=== PATIENT | female | born 1990 | race Caucasian/White ===

== ENCOUNTER 2017-06-13 13:59 | Emergency (ER) | payer OTHER, MEDICAID ==
[~2017-06-13] VITALS: Ht 165.1 cm; Wt 62.6 kg
[~2017-06-13 13:59] MED LIST: AMOXICILLIN 50500 MG PO; AUGMENTIN 875875 MG PO; CEPHALEXIN 250250 M1 PO; CIPRO250 MG PO; CITRATE OF MAG296 ML PO; CLEOCIN HCL150 MG PO; CLEOCIN HCL300 MG PO; COLACE 100 MG100 MG PO; DOLOPHINE HCL5 MG; DOLOPHINE HCL5 MG PO; HYDROCODONE-APA1 TA1 PO; IBUPROFEN 600600 M1 PO; IBUPROFEN 800800 M1 PO; IBUPROFEN 800800 MG PO; LIDOCAINE VISC100 M1 SWISH&SPIT; MACROBID 100 M100 M1 PO; NAPROSYN500 MG PO; NOHOMEMEDICATIONS; NORCO 5-325 TA1 EACH PO; PENICILLIN V P500 MG PO; PENICILLIN VK250 MG PO; PENICILLIN VK500 M1 PO; PENICILLIN VK500 MG PO; PERIDEX 0.12%473 M1 SSP; TRAMADOL 50 MG50 MG PO; TRINATE TABLET1 TAB PO; ULTRAM 50MG TAB50 MG PO; VEETIDS 250MG250 M1 PO
[2017-06-13] MEDS ORDERED: IRON325 PO (14:12)
[2017-06-13] MEDS ORDERED: COLACE100 MG PO (14:12)
[2017-06-13] MEDS ORDERED: PRENATE ELITE1 EACH PO (14:13)
[2017-06-13 14:30] VITALS: BP 122/85
== END 2017-06-13 14:32 | disposition left against medical advice (07) ==
LOC: M.ERS 13:59
DX: Z53.21 Procedure and treatment not carried out due to patient leaving prior to being seen by health care provider (principal)

== ENCOUNTER 2017-07-26 15:36 | Emergency (ER) | payer OTHER, MEDICAID ==
[~2017-07-26] VITALS: Ht 162.6 cm; Wt 54.4 kg
[~2017-07-26 15:36] MED LIST changes: +COLACE100 MG PO; +IRON325 PO; +PRENATE ELITE1 EACH PO
[2017-07-26] MEDS ORDERED: TYLENOL EXTRA500 MG PO (16:12)
[2017-07-26 16:25] LABS: ABSOLUTE EOSINOPHILS 0.2 thou/uL (0.0-0.7); ABSOLUTE LYMPHOCYTES 1.7 thou/uL (0.8-5.3); ABSOLUTE MONOCYTES 0.5 thou/uL (0.0-1.2); ABSOLUTE NEUTROPHILS 2.9 thou/uL (1.6-8.1); BASOPHILS 0.9 %; EOSINOPHILS 2.9 %; HEMATOCRIT 29.7 % (37.0-47.0); LYMPHOCYTES 32.5 %; MCH 29.9 pg (26.0-34.0); MCHC 33.7 g/dL (28.0-37.0); MCV 88.7 fL (80.0-100.0); MONOCYTES 8.8 %; MPV 7.3 fl. (7.2-11.1); NUCLEATED RBCS 0 /100WBC; PLATELET COUNT* 382 thou/uL (150-400); POLYS 54.9 %; RBC 3.34 mil/uL (4.20-5.00); RDW-CV 17.1 % (10.5-14.5); WBC 5.3 thou/uL (4.0-11.0)
[2017-07-26 16:32] LABS: CALCIUM 8.7 mg/dL (8.5-10.1); CREATININE 0.7 mg/dL (0.6-1.3)
[2017-07-26 16:37] LABS: ALBUMIN 3.4 g/dL (3.4-5.0); TOTAL BILIRUBIN 0.2 mg/dL (<0.1-1.0); TOTAL PROTEIN 7.5 g/dL (6.4-8.2)
[2017-07-26 17:33] LABS: URINE BILIRUBIN NEGATIVE (Negative); URINE BLOOD TRACE (Negative); URINE CLARITY CLEAR; URINE COLOR YELLOW; URINE GLUCOSE-RANDOM NEGATIVE (Negative); URINE KETONES NEGATIVE (Negative); URINE LEUKOCYTES-REFLEX 2+ (Negative); URINE NITRITE-REFLEX NEGATIVE (Negative); URINE PROTEIN TRACE (Negative); URINE SPECIFIC GRAVITY 1.015 (1.005-1.030); URINE UROBILINOGEN 0.2 E.U./dl (0.2-1.0)
[2017-07-26 17:49] LABS: SQUAMOUS 4-10 Moderate /LPF (0-3)
[2017-07-26 17:50] LABS: BACTERIA-REFLEX >30 Many /HPF (None Seen); CASTS None Seen /LPF (None Seen); CRYSTALS None Seen /LPF (None Seen); URINE RBC 0-2 Rare /HPF (0-2)
[2017-07-26] MEDS ORDERED: NORCO 5-325 TA1 EAC1 PO (17:52)
[2017-07-26] MEDS ORDERED: MACROBID 100 M100 M1 PO (17:52)
[2017-07-26 18:06] VITALS: BP 115/85
== END 2017-07-26 18:07 | disposition home or self-care (01) ==
LOC: M.ERS 15:36
PROVIDERS: Nurse Practitioner Family
DX: N39.0 Urinary tract infection, site not specified (principal); G89.18 Other acute postprocedural pain; Z88.5 Allergy status to narcotic agent; Z90.710 Acquired absence of both cervix and uterus

== ENCOUNTER 2017-12-07 17:28 | Emergency (ER) | payer OTHER, MEDICAID ==
[~2017-12-07] VITALS: Ht 162.6 cm; Wt 56.7 kg
[~2017-12-07 17:28] MED LIST changes: +NORCO 5-325 TA1 EAC1 PO; +TYLENOL EXTRA500 MG PO
[2017-12-07] MEDS ORDERED: KEFLEX500 M1 PO (17:48)
[2017-12-07] MEDS ORDERED: PREDNISONE 20 M20 MG PO (17:48)
[2017-12-07 18:17] VITALS: BP 119/79
== END 2017-12-07 18:17 | disposition home or self-care (01) ==
LOC: M.ERS 17:28
DX: K02.9 Dental caries, unspecified (principal); R59.1 Generalized enlarged lymph nodes; Z88.5 Allergy status to narcotic agent; Z90.710 Acquired absence of both cervix and uterus

== ENCOUNTER 2018-05-28 14:50 | Emergency (ER) | payer OTHER, MEDICAID ==
[~2018-05-28] VITALS: Ht 162.6 cm; Wt 56.7 kg
[~2018-05-28 14:50] MED LIST changes: +KEFLEX500 M1 PO; +PREDNISONE 20 M20 MG PO
[2018-05-28 14:58] VITALS: BP 106/58
[2018-05-28] MEDS ORDERED: KEFLEX500 M1 PO (15:05)
== END 2018-05-28 15:20 | disposition home or self-care (01) ==
LOC: M.ERS 14:50
DX: K02.9 Dental caries, unspecified (principal); F17.210 Nicotine dependence, cigarettes, uncomplicated; Z88.5 Allergy status to narcotic agent; Z98.890 Other specified postprocedural states; Z90.710 Acquired absence of both cervix and uterus

== ENCOUNTER 2018-10-18 21:31 | Emergency (ER) | payer OTHER, MEDICAID | END 2018-10-18 21:44 | disposition left against medical advice (07) | LOC: M.ERS 21:31 | DX: Z53.21 Procedure and treatment not carried out due to patient leaving prior to being seen by health care provider (principal) ==

== ENCOUNTER 2018-12-13 16:23 | Emergency (ER) | payer OTHER, MEDICAID ==
[~2018-12-13] VITALS: Ht 165.1 cm; Wt 56.7 kg
[2018-12-13] MEDS ORDERED: ZANAFLEX4 MG PO ×2 (17:06→17:07)
[2018-12-13] MEDS ORDERED: NABUMETONE 750750 M1 PO ×2 (17:06→17:07)
[2018-12-13 17:49] VITALS: BP 104/60
== END 2018-12-13 17:51 | disposition home or self-care (01) ==
LOC: M.ERS 16:23
DX: S16.1XXA Strain of muscle, fascia and tendon at neck level, initial encounter (principal); S29.012A Strain of muscle and tendon of back wall of thorax, initial encounter; F17.210 Nicotine dependence, cigarettes, uncomplicated; Z88.5 Allergy status to narcotic agent; Z98.890 Other specified postprocedural states; Z90.710 Acquired absence of both cervix and uterus; V89.2XXA Person injured in unspecified motor-vehicle accident, traffic, initial encounter; Y93.89 Activity, other specified; Y92.89 Other specified places as the place of occurrence of the external cause; Y99.8 Other external cause status

== ENCOUNTER 2019-06-11 12:47 | Emergency (ER) | payer OTHER, MEDICAID ==
[~2019-06-11] VITALS: Ht 160 cm; Wt 59.0 kg
[~2019-06-11 12:47] MED LIST changes: +NABUMETONE 750750 M1 PO; +ZANAFLEX4 MG PO
[2019-06-11] MEDS ORDERED: NAPROSYN500 MG PO (13:27)
[2019-06-11] MEDS ORDERED: PENICILLIN VK500 M1 PO (13:27)
[2019-06-11] MEDS ORDERED: NORCO 5-325 TA1 EAC1 PO (13:27)
[2019-06-11 13:54] VITALS: BP 112/60
== END 2019-06-11 13:55 | disposition home or self-care (01) ==
LOC: M.ERS 12:47
DX: K04.7 Periapical abscess without sinus (principal); K00.7 Teething syndrome; F17.210 Nicotine dependence, cigarettes, uncomplicated; Z98.890 Other specified postprocedural states; Z90.710 Acquired absence of both cervix and uterus

== ENCOUNTER 2019-08-14 17:44 | Emergency (ER) | payer OTHER, MEDICAID ==
[~2019-08-14] VITALS: Ht 160 cm; Wt 59.0 kg
[2019-08-14] MEDS ORDERED: PERIDEX 0.12%473 M1 SWISH&SPIT (18:16)
[2019-08-14] MEDS ORDERED: AMOXICILLIN 50500 MG PO (18:16)
[2019-08-14 18:51] VITALS: BP 123/75
== END 2019-08-14 18:52 | disposition home or self-care (01) ==
LOC: M.ERS 17:44
DX: K04.7 Periapical abscess without sinus (principal); F17.210 Nicotine dependence, cigarettes, uncomplicated; Z98.890 Other specified postprocedural states; Z90.710 Acquired absence of both cervix and uterus; Z88.1 Allergy status to other antibiotic agents; Z88.6 Allergy status to analgesic agent

== ENCOUNTER 2020-03-01 11:43 | Emergency (ER) | payer OTHER, MEDICAID ==
[~2020-03-01] VITALS: Ht 162.6 cm; Wt 59.0 kg
[~2020-03-01 11:43] MED LIST changes: +PERIDEX 0.12%473 M1 SWISH&SPIT
[2020-03-01] MEDS ORDERED: PENICILLIN VK500 M1 PO (12:12)
[2020-03-01] MEDS ORDERED: NORCO 5-325 TA1 EAC2 PO (12:12)
[2020-03-01] MEDS ORDERED: PERIDEX 0.12%473 M1 SWISH&SPIT (12:12)
[2020-03-01 12:14] VITALS: BP 121/63
== END 2020-03-01 12:14 | disposition home or self-care (01) ==
LOC: M.ERS 11:43
DX: K04.7 Periapical abscess without sinus (principal); Z98.890 Other specified postprocedural states; Z90.711 Acquired absence of uterus with remaining cervical stump; Z88.1 Allergy status to other antibiotic agents; Z88.5 Allergy status to narcotic agent; Z88.8 Allergy status to other drugs, medicaments and biological substances

== ENCOUNTER 2020-07-07 11:25 | Emergency (ER) | payer OTHER, MEDICAID ==
[~2020-07-07] VITALS: Ht 162.6 cm; Wt 68.0 kg
[~2020-07-07 11:25] MED LIST changes: +NORCO 5-325 TA1 EAC2 PO
[2020-07-07] MEDS ORDERED: VENTOLIN HFA 1818 GM INH (12:47)
[2020-07-07] MEDS ORDERED: TESSALON PERLE100 M1 PO (12:47)
[2020-07-07 13:11] VITALS: BP 122/76
== END 2020-07-07 13:12 | disposition home or self-care (01) ==
LOC: M.ERS 11:25
DX: B34.9 Viral infection, unspecified (principal); Z20.822 Contact with and (suspected) exposure to COVID-19; F17.210 Nicotine dependence, cigarettes, uncomplicated; Z98.890 Other specified postprocedural states; Z90.711 Acquired absence of uterus with remaining cervical stump; Z93.6 Other artificial openings of urinary tract status; Z88.1 Allergy status to other antibiotic agents; Z88.5 Allergy status to narcotic agent; Z88.8 Allergy status to other drugs, medicaments and biological substances

== ENCOUNTER 2020-07-27 18:53 | Emergency (ER) | payer OTHER, MEDICAID ==
[~2020-07-27] VITALS: Ht 162.6 cm; Wt 68.0 kg
[~2020-07-27 18:53] MED LIST changes: +TESSALON PERLE100 M1 PO; +VENTOLIN HFA 1818 GM INH
[2020-07-27] MEDS ORDERED: CORTISPORIN OTI10 M2 OTIC (19:32)
[2020-07-27 19:43] VITALS: BP 126/59
== END 2020-07-27 19:43 | disposition home or self-care (01) ==
LOC: M.ERS 18:53
DX: H60.91 Unspecified otitis externa, right ear (principal); F17.210 Nicotine dependence, cigarettes, uncomplicated; Z98.890 Other specified postprocedural states; Z90.710 Acquired absence of both cervix and uterus; Z88.1 Allergy status to other antibiotic agents; Z88.5 Allergy status to narcotic agent; Z88.6 Allergy status to analgesic agent